=== PATIENT | female | born 1975 | race Hispanic/Latino ===

== ENCOUNTER 2018-01-02 16:25 | Outpatient (CLI) | payer BC | END 2018-01-02 16:26 | disposition home or self-care (01) | LOC: BICMAMMO 16:25 | PROVIDERS: ATTEND Obstetrics & Gynecology | DX: Z12.31 Encounter for screening mammogram for malignant neoplasm of breast (principal); Z80.3 Family history of malignant neoplasm of breast | CPT/HCPCS: 77063; 77067 ==

== ENCOUNTER 2019-01-14 11:15 | Outpatient (CLI) | payer BC ==
--- NOTE | 2019-01-14 13:00 | MMO ---
Bilateral MAMMO Bilat Screen [facility]. CLINICAL HISTORY: Patient is 44 years old and is seen for screening. The patient has no family history of breast cancer. The patient has no personal history of cancer. The patient has a history of bilateral Breast reduction in July, - benign. VIEWS: The views performed were: bilateral craniocaudal with tomosynthesis; bilateral mediolateral oblique with tomosynthesis; and bilateral exaggerated craniocaudal. FILMS COMPARED: The present examination has been compared to prior imaging studies performed at [facility] on 12/24/2014, 12/28/2015, 12/28/2016 and 01/02/2018. MAMMOGRAM FINDINGS: There are scattered fibroglandular densities. There are new post operative changes seen in both breasts. There are no suspicious masses, suspicious calcifications, or concerning areas of architectural distortion. IMPRESSION: THERE IS NO MAMMOGRAPHIC EVIDENCE OF MALIGNANCY. A ROUTINE FOLLOW-UP MAMMOGRAM IN 1 YEAR IS RECOMMENDED. 3BTHE RESULTS OF THIS EXAM WERE SENT TO THE PATIENT.0B ACR BI-RADS Category 2 - Benign finding MAMMOGRAPHY NOTE: 1. A negative mammogram report should not delay a biopsy if a dominant of clinically suspicious mass is present. 2. Approximately 10% to 15% of breast cancers are not detected by mammography. 3. Adenosis and dense breasts may obscure an underlying neoplasm.
== END 2019-01-14 11:16 | disposition home or self-care (01) ==
LOC: BICMAMMO 11:15
PROVIDERS: ATTEND Obstetrics & Gynecology
DX: Z12.31 Encounter for screening mammogram for malignant neoplasm of breast (principal)
CPT/HCPCS: 77063; 77067

== ENCOUNTER 2020-05-29 08:30 | Outpatient (CLI) | payer BC ==
--- NOTE | 2020-05-29 10:19 | CT ---
CT ABDOMEN AND PELVIS WITHOUT IV CONTRAST: INDICATION: Left flank pain. Microhematuria. COMPARISON: Comparison is made to CT abdomen and pelvis 10/21/2016. FINDINGS: Lung bases clear. Liver, spleen, and pancreas unremarkable. Stomach and duodenum unremarkable. Adrenal glands normal. Review of kidneys again shows a tiny hyperdense nodule involving superior left renal cortex along its medial surface measuring 6-7 mm. This tiny hyperdense nodule is stable. There are multiple tiny nonobstructing calculi in the upper collecting structures of the left kidney measuring in the 1-3 mm range. There is at least 1 tiny nonobstructing calculus in the lower pole co llecting structures of the right kidney. There is no hydronephrosis. Ureters are normal caliber. No evidence of ureteral calculus. The urin kristi bladder is contracted and poorly evaluated but appears unremarkable as visualized. There is evid ence of a double collecting system on the left with 2 left ureters seen proximally. These appear to joint distally. Both these tiny ureters are unremarkable. Small and large bowel loops are unremarkable. Aorta normal caliber. NO mass or adenopathy. Images through the pelvis show unremarkable uterus and adnexa. Osseous structures unremarkable. IMPRESSION: 1. Small nonobstructing calculi in the upper collecting structures of both kidneys as described. No evidence of ureteral calculus or obstruction. 2. Tiny hyperdense focus superior left renal cortex is stable from 2017. POS: OFF
== END 2020-05-29 08:31 | disposition home or self-care (01) ==
LOC: CT 08:30
PROVIDERS: ATTEND Family Medicine
DX: N20.0 Calculus of kidney (principal); R93.422 Abnormal radiologic findings on diagnostic imaging of left kidney
CPT/HCPCS: 74176

== ENCOUNTER 2021-01-19 08:17 | Outpatient (CLI) | payer BC | END 2021-01-19 08:18 | disposition home or self-care (01) | LOC: BICMAMMO 08:17 | PROVIDERS: ATTEND Obstetrics & Gynecology | DX: Z12.31 Encounter for screening mammogram for malignant neoplasm of breast (principal); Z98.890 Other specified postprocedural states | CPT/HCPCS: 77063; 77067 ==

== ENCOUNTER 2022-07-27 08:00 | Outpatient (CLI) | payer BC ==
[2022-07-27 09:46] LABS: #Basophils 0.1 10x3/uL (0.0-0.2); #Monocytes 0.6 10x3/uL (0.0-1.1); #Neutrophils 5.2 10x3/uL (1.5-8.4); %Basophils 0.6 % (0.0-2.0); %Eosinophils 0.4 % (0.0-6.0); %Lymphocytes 33.6 % (18.0-47.0); %Neutrophils 58.1 % (40.0-75.0); Hemoglobin 14.3 g/dL (12.0-15.5); Mean Corpuscular Hemoglobin 32.1 pg (27.0-33.0); Mean Corpuscular Volume 94.6 fl (81.6-98.3); Mean Platelet Volume 10.4 fl (7.4-10.4); Platelet Count 334 10x3/uL (150-450); RBC Distribution Width 13.3 % (11.5-14.5); Red Blood Cell (RBC) Count 4.45 10x6/uL (3.90-5.03); White Blood Cell (WBC) Count 8.9 10x3/uL (3.5-10.5)
[2022-07-27 09:56] LABS: BHCG - Serum Negative (NEGATIVE); Pregs Control Background? CLEAR/WHITE (CLR/WHITE); Pregs Control Bar Appear? YES (CONTROL BAR)
== END 2022-07-27 08:01 | disposition home or self-care (01) ==
LOC: LABBT 08:00
PROVIDERS: ATTEND Surgery
DX: Z01.818 Encounter for other preprocedural examination (principal); K60.3 Anal fistula
CPT/HCPCS: 84703; 85025; 93005; 93010

== ENCOUNTER 2022-07-29 07:20 | Day surgery (SDC) | payer BC ==
[2022-07-28 08:56] VITALS: BMI 29.8
[2022-07-29] MEDS ORDERED: Methylene Blue 50 MG/10 ML AMPUL ONE (08:56)
[2022-07-29] MEDS ORDERED: Bacitracin Zinc Ointment 30 gm TUBE ONE (08:57)
[2022-07-29] MEDS ORDERED: Bupivacaine HCl 0.5%/Epinephrine 1:200,000/PF 30 ml Vial ONE (08:57)
[2022-07-29] MEDS ORDERED: Lidocaine 2% PF 5 ML VIAL ONE (08:57)
[2022-07-29] MEDS ORDERED: fentaNYL PF 100 MCG/2 ML SYRINGE ONE (09:04)
[2022-07-29] MEDS ORDERED: Famotidine/PF 20 mg/2ml Vial ONE (09:04)
[2022-07-29] MEDS ORDERED: Sodium Chloride 0.9% 100 ML ONE (09:09)
[2022-07-29] MEDS ORDERED: cefOXitin 2 GM VIAL ONE (09:09)
[2022-07-29] MEDS ORDERED: PROPOFOL 200 MG/20 ML VIAL ONE (09:22)
[2022-07-29] MEDS ORDERED: Lidocaine 1% PF 5 ML VIAL ONE (09:22)
[2022-07-29] MEDS ORDERED: Ondansetron PF 4 MG/2 ML Vial ONE (09:22)
[2022-07-29] MEDS ORDERED: Ketorolac Tromethamine 30 MG/ML VIAL ONE (09:22)
[2022-07-29] MEDS ORDERED: Dexamethasone 20 MG/5 ML VIAL ONE (09:22)
[2022-07-29] MEDS ORDERED: Fentanyl 100 MCG/2 ML VIAL ONE ×2 (10:19→10:30)
[2022-07-29] MEDS ORDERED: diphenhydrAMINE 50 MG/ML VIAL ONE (11:01)
== END 2022-07-29 11:56 | disposition home or self-care (01) ==
LOC: SDC 07:20
PROVIDERS: ATTEND Surgery
PROC: 06BY3ZC Excision of Hemorrhoidal Plexus, Percutaneous Approach (ICD-10-PCS; principal; 2022-07-29)
PROC: 0H88XZZ Division of Buttock Skin, External Approach (ICD-10-PCS; principal; 2022-07-29)
DX: K60.3 Anal fistula (principal); K64.5 Perianal venous thrombosis; I10 Essential (primary) hypertension; E11.9 Type 2 diabetes mellitus without complications; E03.9 Hypothyroidism, unspecified; Z79.84 Long term (current) use of oral hypoglycemic drugs; Z79.890 Hormone replacement therapy; Z79.899 Other long term (current) drug therapy
CPT/HCPCS: 88304; J0694; J1100; J1200; J1885; J2001; J2405; J2704; J3010; J3490; Q9968; S0028